=== PATIENT | female | born 1950 | race Caucasian/White ===

== ENCOUNTER 2025-07-13 15:25 | Outpatient (RCR) | payer MEDICARE, SELFPAY | END 2025-07-29 23:59 | disposition home or self-care (01) | LOC: CR 15:25 | PROVIDERS: PCP Family Medicine; Visit Provider Internal Medicine Cardiovascular Disease ==

== ENCOUNTER 2025-08-03 10:52 | Outpatient (RCR) | payer MEDICARE, SELFPAY ==
--- NOTE | 2025-08-03 10:45 | RT.EKG_ITS ---
APPROVED REPORT Exam: Resting ECG Reason for Exam: CR Intake Appointment - Baseline EKG Patient Location: O HR:81 bpm ECG Measurements Heart Rate [address] 183 P 69 QRSd 68 QRS -56 QT 374 T 51 QTc 434 Conclusion Sinus rhythm...normal P axis, V-rate 50- 99 Inferior infarct, old...Q >35mS, II III aVF Consider anterior infarct...Q >30mS in V2-V5
== END 2025-08-28 23:59 | disposition home or self-care (01) ==
LOC: CR 10:52
PROVIDERS: PCP Family Medicine; Visit Provider Internal Medicine Cardiovascular Disease
DX: I21.4 Non-ST elevation (NSTEMI) myocardial infarction (principal); Z95.5 Presence of coronary angioplasty implant and graft
CPT/HCPCS: S9472

== ENCOUNTER 2025-08-27 10:00 | Outpatient (RCR) | payer MEDICARE, SELFPAY | END 2025-08-28 23:59 | disposition home or self-care (01) | LOC: CR 10:00 | PROVIDERS: PCP Family Medicine; Visit Provider Internal Medicine Cardiovascular Disease | DX: I21.4 Non-ST elevation (NSTEMI) myocardial infarction (principal); Z95.5 Presence of coronary angioplasty implant and graft; Z51.89 Encounter for other specified aftercare | CPT/HCPCS: S9472 ==

== ENCOUNTER 2025-09-28 10:00 | Outpatient (RCR) | payer MEDICARE, SELFPAY ==
[2025-08-29 11:19] VITALS: BP 116/75; PULSE 82
== END 2025-09-28 23:59 | disposition home or self-care (01) ==
LOC: CR 10:00
PROVIDERS: PCP Family Medicine; Visit Provider Internal Medicine Cardiovascular Disease
DX: I21.4 Non-ST elevation (NSTEMI) myocardial infarction (principal); Z95.5 Presence of coronary angioplasty implant and graft
CPT/HCPCS: S9472

== ENCOUNTER 2025-10-22 10:00 | Outpatient (RCR) | payer MEDICARE, SELFPAY ==
[2025-09-29 00:10] VITALS: BP 116/75; PULSE 82
== END 2025-10-28 23:59 | disposition home or self-care (01) ==
LOC: CR 10:00
PROVIDERS: PCP Family Medicine; Visit Provider Internal Medicine Cardiovascular Disease
DX: I21.4 Non-ST elevation (NSTEMI) myocardial infarction (principal); Z95.5 Presence of coronary angioplasty implant and graft; Z51.89 Encounter for other specified aftercare
CPT/HCPCS: S9472

== ENCOUNTER 2025-11-05 10:00 | Outpatient (RCR) | payer MEDICARE, SELFPAY | END 2025-11-28 23:59 | disposition home or self-care (01) | LOC: CR 10:00 | PROVIDERS: PCP Family Medicine; Visit Provider Internal Medicine Cardiovascular Disease | DX: I21.4 Non-ST elevation (NSTEMI) myocardial infarction (principal); Z95.2 Presence of prosthetic heart valve | CPT/HCPCS: S9472 ==